=== PATIENT | female | born 1970 | race Caucasian/White ===

== ENCOUNTER 2016-04-30 15:15 | Inpatient (IN) | payer OTHER ==
[~2016-04-30] VITALS: Ht 160 cm; Wt 93.4 kg
[~2016-04-30 15:15] MED LIST: ATIVAN0.5 MG PO; ATIVAN1 MG PO; BUSPAR10 MG PO; BUSPAR15 MG PO; CELEXA20 MG PO; CYCLOBENZAPRINE5 MG PO; DAILY VITE1 EAC1 PO; DITROPAN5 MG PO; FLEXERIL5 MG PO; HYDROXYZINE HCL10 MG PO; MOBIC15 MG PO; MOBIC7.5 MG PO; ONE DAILY ADUL1 EACH PO; PAROXETINE HCL20 MG PO; PAROXETINE HCL40 MG PO; PAXIL40 MG PO; REMERON15 M2 PO; TOVIAZ4 MG PO; TRAZODONE HCL50 MG PO; ULTRAM50 MG PO; URSODIOL300 MG PO; VICODIN,LORT1 TABLET PO
[2016-04-30 16:22] LABS: HEMATOCRIT 38.8 % (36.0-46.0); MCH 30.2 PG (29.0-34.0); MCHC 35.1 G/DL (30.0-36.0); MCV 86.2 FL (83-99); MEAN PLAT.VOLUME 9.5 uM^3 (9.5-12.4); PLATELET COUNT 269 K/uL (156-360); RBC DIS.WIDTH-CV 12.5 % (11.8-14.6); RBC DIS.WIDTH-SD 38.2 % (39-53); WHITE BLOOD COUNT 9.3 K/uL (4.1-10.2)
[2016-04-30 16:34] LABS: CHLORIDE 99 mEq/L (99-109); POTASSIUM 3.8 mEq/L (3.7-5.4); SODIUM 136 mEq/L (136-147)
[2016-04-30 16:36] LABS: GLUCOSE 163 mg/dL (70-99)
[2016-04-30 16:37] LABS: ANION GAP 13 MEQ/L (2-14)
[2016-04-30 16:38] LABS: TOTAL BILIRUBIN 0.2 mg/dL (0.0-1.0)
[2016-04-30 16:40] LABS: ALKALINE PHOSPHATASE 94 IU/L (3-129); GFR ESTIMATE (CALCULATED) > 59 mL/min/
[2016-04-30 16:41] LABS: DIRECT BILIRUBIN 0.1 mg/dL (0.0-0.3); UREA NITROGEN (BUN) 14 mg/dL (9-23)
[2016-04-30 16:43] LABS: LIPASE 39 U/L (1.0-51.0)
[2016-04-30] MEDS ORDERED: ATARAX,VISTARIL50 MG PO (20:00)
[2016-04-30] MEDS ORDERED: BUSPAR15 MG PO (20:00)
[2016-04-30] MEDS ORDERED: TRILEPTAL300 MG PO (20:01)
[2016-04-30] MEDS ORDERED: SEROQUEL12.5 MG PO (20:01)
[2016-04-30] MEDS ORDERED: RANITIDINE HCL150 MG PO (20:02)
[2016-04-30] MEDS ORDERED: METFORMIN HCL500 M1 PO (20:02)
[2016-04-30 20:13] LABS: ADD MIUA? NO; BILIRUBIN NEGATIVE; BLOOD NEGATIVE; COLOR YELLOW ((YELLOW)); GLUCOSE (STRIP) NEGATIVE; KETONES NEGATIVE; LEUKOCYTES NEGATIVE; NITRITE NEGATIVE; PH, URINE 5.5 (5-8); PROTEIN (STRIP) NEGATIVE; UCUL ADDED? NO; UROBILINOGEN 0.2 MG/DL (0.2-1.0)
[2016-04-30 20:22] LABS: SPECIFIC GRAVITY > 1.080 (1.000-1.030)
[2016-05-01 00:24] VITALS: BP 111/75
[2016-05-01 04:30] VITALS: BP 110/70
[2016-05-01 06:21] LABS: ANION GAP 8 MEQ/L (2-14); CHLORIDE 101 MEQ/L (99-109); GFR ESTIMATE (CALCULATED) > 59 mL/min/; GLUCOSE 195 mg/dL (70-99); POTASSIUM 3.7 MEQ/L (3.7-5.4); SAMPLE HEMOLYSIS CHECK 0; SAMPLE ICTERIC CHECK 0; SAMPLE LIPEMIA CHECK 0; SODIUM 137 MEQ/L (136-147); UREA NITROGEN (BUN) 15 mg/dL (9-23)
[2016-05-01 06:23] LABS: EOSINOPHIL (%) 2.2 % (0-5); EOSINOPHIL COUNT 0.1 K/uL (0-0.3); HEMATOCRIT 35.9 % (36.0-46.0); IMMATURE GRANULOCYTE (%) 0.3 % (0.0-0.7); LYMPHOCYTE COUNT 1.7 K/uL (1.0-2.8); MCH 30.6 PG (29.0-34.0); MCHC 34.3 G/DL (30.0-36.0); MCV 89.3 FL (83-99); MEAN PLAT.VOLUME 9.9 uM^3 (9.5-12.4); MONOCYTE (%) 4.7 % (3-12); MONOCYTE COUNT 0.3 K/uL (0-0.8); NEUTROPHIL (%) 63.6 % (45-76); NEUTROPHIL COUNT 3.8 K/uL (1.8-6.4); PLATELET COUNT 219 K/uL (156-360); RBC DIS.WIDTH-CV 12.8 % (11.8-14.6); RBC DIS.WIDTH-SD 41.4 % (39-53); RED BLOOD COUNT 4.02 M/uL (3.80-5.20)
[2016-05-01 06:27] LABS: WHITE BLOOD COUNT 5.9 K/uL (4.1-10.2)
[2016-05-01 08:42] VITALS: BP 104/60
[2016-05-01 12:13] VITALS: BP 118/65
[2016-05-01 13:00] LABS: POINT-OF-CARE METER ID UU13113694; POINT-OF-CARE USER ID OPEBLP59
[2016-05-01 14:42] LABS: Estimated Average Glucose 220 mg/dL (70-123); HEMOGLOBIN A1c (GLYCOHEMOGLOB) 9.3 % HGB (Below 5.7)
[2016-05-01 17:33] LABS: POINT-OF-CARE METER ID UU14149397
[2016-05-01 20:30] VITALS: BP 106/57
[2016-05-01 22:11] LABS: POINT-OF-CARE METER ID UU14149397
[2016-05-02] VITALS: BP 101/64
[2016-05-02 03:45] VITALS: BP 109/75
[2016-05-02 07:00] LABS: ALKALINE PHOSPHATASE 94 IU/L (3-129); DIRECT BILIRUBIN 0.1 mg/dL (0.0-0.3); TOTAL BILIRUBIN 0.4 MG/DL (0.0-1.0)
[2016-05-02 07:52] VITALS: BP 126/73
[2016-05-02 11:45] LABS: POINT-OF-CARE METER ID UU14149397
== END 2016-05-02 13:05 | disposition home or self-care (01) | DRG 920 ==
LOC: EME 15:15 → EDOF 22:13 → 3EAST 22:13
PROVIDERS: Emergency Medicine; Hospitalist; Internal Medicine Gastroenterology
DX: T85.590A Other mechanical complication of bile duct prosthesis, initial encounter (principal); K80.51 Calculus of bile duct without cholangitis or cholecystitis with obstruction; K22.9 Disease of esophagus, unspecified; F32.9 Major depressive disorder, single episode, unspecified; F41.9 Anxiety disorder, unspecified; E11.65 Type 2 diabetes mellitus with hyperglycemia; F17.200 Nicotine dependence, unspecified, uncomplicated; E66.9 Obesity, unspecified; Z68.36 Body mass index [BMI] 36.0-36.9, adult; Z88.5 Allergy status to narcotic agent; Z23 Encounter for immunization
CPT/HCPCS: 74177; 74328; 80048; 80076; 81003; 82948; 83036; 83690; 85025; 85027; 87081; 88305; 99281; 99285; C1757; C1769; G0378; J0330; J1170; J1650; J1815; J2250; J2270; J2405; J2765; J3010; J7030; J7120; Q0177; S0028

== ENCOUNTER 2016-05-05 16:17 | Emergency (ER) | payer OTHER ==
[~2016-05-05] VITALS: Ht 160 cm; Wt 96.1 kg
[~2016-05-05 16:17] MED LIST changes: +ATARAX,VISTARIL50 MG PO; +METFORMIN HCL500 M1 PO; +RANITIDINE HCL150 MG PO; +SEROQUEL12.5 MG PO; +TRILEPTAL300 MG PO
[2016-05-05 17:36] LABS: HEMATOCRIT 36.4 % (36.0-46.0); MCH 30.1 PG (29.0-34.0); MCHC 34.1 G/DL (30.0-36.0); MCV 88.3 FL (83-99); MEAN PLAT.VOLUME 9.2 uM^3 (9.5-12.4); PLATELET COUNT 267 K/uL (156-360); RBC DIS.WIDTH-SD 40.3 % (39-53); RED BLOOD COUNT 4.12 M/uL (3.80-5.20); WHITE BLOOD COUNT 7.6 K/uL (4.1-10.2)
[2016-05-05 17:47] LABS: CHLORIDE 108 mEq/L (99-109); POTASSIUM 3.3 mEq/L (3.7-5.4); SODIUM 141 mEq/L (136-147)
[2016-05-05 17:48] LABS: D-DIMER ELISA 0.45 mg/L FEU (< 0.57)
[2016-05-05 17:49] LABS: GLUCOSE 390 mg/dL (70-99)
[2016-05-05 17:51] LABS: ANION GAP 15 MEQ/L (2-14)
[2016-05-05 17:53] LABS: ADD MIUA? NO; BILIRUBIN NEGATIVE; BLOOD NEGATIVE; COLOR YELLOW ((YELLOW)); GLUCOSE (STRIP) >=1000; KETONES TRACE; LEUKOCYTES NEGATIVE; NITRITE NEGATIVE; PROTEIN (STRIP) NEGATIVE; SPECIFIC GRAVITY 1.035 (1.000-1.030); UCUL ADDED? NO; UROBILINOGEN 0.2 MG/DL (0.2-1.0)
[2016-05-05 17:53] LABS: GFR ESTIMATE (CALCULATED) > 59 mL/min/
[2016-05-05 17:54] LABS: UREA NITROGEN (BUN) 12 mg/dL (9-23)
[2016-05-05 17:56] LABS: LIPASE 81 U/L (1.0-51.0)
[2016-05-05 17:58] LABS: ALKALINE PHOSPHATASE 119 IU/L (3-129); TOTAL BILIRUBIN 0.1 mg/dL (0.0-1.0)
[2016-05-05 19:10] LABS: SAMPLE HEMOLYSIS CHECK 0; SAMPLE ICTERIC CHECK 0; SAMPLE LIPEMIA CHECK 0; SERUM ETHYL ALCOHOL 82 mg/dL
[2016-05-05 20:57] LABS: GLUCOSE 385 mg/dL (70-99)
[2016-05-05 22:18] LABS: CHLORIDE 111 mEq/L (99-109); POTASSIUM 3.6 mEq/L (3.7-5.4); SODIUM 140 mEq/L (136-147)
[2016-05-05 22:21] LABS: ANION GAP 6 MEQ/L (2-14)
[2016-05-05 22:23] LABS: GFR ESTIMATE (CALCULATED) > 59 mL/min/
[2016-05-05 22:24] LABS: UREA NITROGEN (BUN) 12 mg/dL (9-23)
[2016-05-05] MEDS ORDERED: LEVAQUIN750 MG PO (23:09)
[2016-05-05] MEDS ORDERED: ULTRAM50 MG PO (23:09)
[2016-05-05 23:49] VITALS: BP 125/88
== END 2016-05-05 23:51 | disposition home or self-care (01) ==
LOC: EME 16:17
PROVIDERS: Nurse Practitioner Family
DX: G62.9 Polyneuropathy, unspecified (principal); J18.1 Lobar pneumonia, unspecified organism; E11.65 Type 2 diabetes mellitus with hyperglycemia; R56.9 Unspecified convulsions; Z79.84 Long term (current) use of oral hypoglycemic drugs; F17.200 Nicotine dependence, unspecified, uncomplicated
CPT/HCPCS: 71020; 73630; 80048 91; 80053; 81003; 82009; 82947 91; 83605; 83690; 85027; 85379; 93005; 99281; 99285; G0480; J1885; J2060

== ENCOUNTER 2016-09-09 16:50 | Emergency (ER) | payer OTHER ==
[~2016-09-09] VITALS: Ht 414 cm; Wt 95.5 kg
[~2016-09-09 16:50] MED LIST changes: +LEVAQUIN750 MG PO
[2016-09-09 17:28] LABS: HEMATOCRIT 41.5 % (36.0-46.0); MCH 29.4 PG (29.0-34.0); MCHC 31.8 G/DL (30.0-36.0); MCV 92.4 FL (83-99); MEAN PLAT.VOLUME 9.5 uM^3 (9.5-12.4); PLATELET COUNT 297 K/uL (156-360); RBC DIS.WIDTH-CV 13.2 % (11.8-14.6); RBC DIS.WIDTH-SD 44.7 % (39-53); RED BLOOD COUNT 4.49 M/uL (3.80-5.20); WHITE BLOOD COUNT 7.2 K/uL (4.1-10.2)
[2016-09-09 17:38] LABS: CHLORIDE 108 mEq/L (99-109); POTASSIUM 4.1 mEq/L (3.7-5.4); SODIUM 142 mEq/L (136-147)
[2016-09-09 17:40] LABS: GLUCOSE 149 mg/dL (70-99)
[2016-09-09 17:41] LABS: ANION GAP 8 MEQ/L (2-14)
[2016-09-09 17:42] LABS: TOTAL BILIRUBIN 0.2 mg/dL (0.0-1.0)
[2016-09-09 17:43] LABS: ALKALINE PHOSPHATASE 70 IU/L (3-129)
[2016-09-09 17:44] LABS: GFR ESTIMATE (CALCULATED) > 59 mL/min/
[2016-09-09 17:45] LABS: UREA NITROGEN (BUN) 18 mg/dL (9-23)
[2016-09-09 17:47] LABS: LIPASE 60 U/L (1.0-51.0)
[2016-09-09 17:54] LABS: QUANTITATIVE HCG < 4.0 MIU/ML
[2016-09-09 18:40] LABS: ADD MIUA? YES; BILIRUBIN NEGATIVE; BLOOD LARGE; COLOR YELLOW ((YELLOW)); GLUCOSE (STRIP) >=500; KETONES NEGATIVE; LEUKOCYTES NEGATIVE; NITRITE NEGATIVE; PROTEIN (STRIP) 30; SPECIFIC GRAVITY 1.036 (1.000-1.030); UROBILINOGEN 0.2 MG/DL (0.2-1.0)
[2016-09-09 19:06] LABS: BACTERIA RARE /HPF; EPITHELIAL CELLS 1+ /HPF; MUCUS NONE SEEN /LPF; RED BLOOD CELLS TNTC /HPF (0-5); WHITE BLOOD CELLS 0-5 /HPF (0-5)
[2016-09-09] MEDS ORDERED: ZOFRAN ODT4 MG PO (19:14)
[2016-09-09] MEDS ORDERED: ULTRAM50 MG PO (19:14)
[2016-09-09] MEDS ORDERED: BENTYL20 MG PO (19:14)
[2016-09-09 19:54] VITALS: BP 124/77
== END 2016-09-09 19:55 | disposition home or self-care (01) ==
LOC: EME → EDBD 16:50 → EME 16:50
PROVIDERS: Nurse Practitioner Family
DX: R10.11 Right upper quadrant pain (principal); R10.13 Epigastric pain; R11.0 Nausea; R74.8 Abnormal levels of other serum enzymes; E11.9 Type 2 diabetes mellitus without complications; Z79.84 Long term (current) use of oral hypoglycemic drugs; Z90.49 Acquired absence of other specified parts of digestive tract; F17.200 Nicotine dependence, unspecified, uncomplicated
CPT/HCPCS: 76705; 80053; 81003; 83690; 84702; 85027; 93005; 99281; 99285; J1885; J3010; J7030

== ENCOUNTER 2016-11-21 15:52 | Emergency (ER) | payer OTHER ==
[~2016-11-21] VITALS: Ht 160 cm; Wt 90.9 kg
[~2016-11-21 15:52] MED LIST changes: +BENTYL20 MG PO; +ZOFRAN ODT4 MG PO
[2016-11-21] MEDS ORDERED: MIRALAX17 GM PO (17:31)
[2016-11-21 17:43] VITALS: BP 139/98
== END 2016-11-21 17:43 | disposition home or self-care (01) ==
LOC: EME 15:52
DX: K59.00 Constipation, unspecified (principal); E11.9 Type 2 diabetes mellitus without complications; F32.9 Major depressive disorder, single episode, unspecified; F41.9 Anxiety disorder, unspecified; F17.200 Nicotine dependence, unspecified, uncomplicated; Z79.84 Long term (current) use of oral hypoglycemic drugs
CPT/HCPCS: 74000; 81003; 99281; 99284; J1885

== ENCOUNTER 2017-05-24 07:00 | Emergency (ER) | payer OTHER ==
[~2017-05-24] VITALS: Ht 160 cm; Wt 95.3 kg
[~2017-05-24 07:00] MED LIST changes: +MIRALAX17 GM PO
[2017-05-24 07:03] VITALS: BP 129/100
[2017-05-24] MEDS ORDERED: ATARAX,VISTARIL50 MG PO (07:18)
== END 2017-05-24 07:53 | disposition home or self-care (01) ==
LOC: EME 07:00
DX: F41.9 Anxiety disorder, unspecified (principal); Z76.0 Encounter for issue of repeat prescription; F32.9 Major depressive disorder, single episode, unspecified
CPT/HCPCS: 99281; 99283

== ENCOUNTER 2017-11-28 11:08 | Emergency (ER) | payer OTHER ==
[~2017-11-28] VITALS: Ht 160 cm; Wt 100.3 kg
[2017-11-28] MEDS ORDERED: HUMALIN 70/30 SQ (12:02)
[2017-11-28] MEDS ORDERED: BACTRIM,SEPT1 TABLET PO (12:05)
[2017-11-28 12:14] VITALS: BP 113/81
== END 2017-11-28 12:14 | disposition home or self-care (01) ==
LOC: EME 11:08
DX: H60.02 Abscess of left external ear (principal); R59.0 Localized enlarged lymph nodes; Z88.5 Allergy status to narcotic agent
CPT/HCPCS: 99281; 99284